=== PATIENT | male | born 1980 | race African-American/Black ===

== ENCOUNTER 2023-04-25 08:11 | Emergency (ER) | payer OTHER, MEDICAID ==
[~2023-04-25] VITALS: Ht 167.6 cm; Wt 86.2 kg
[2023-04-25] MEDS ORDERED: VIBRA-TAB100 MG PO (09:14)
== END 2023-04-25 09:30 | disposition home or self-care (01) ==
LOC: ED 08:11
DX: H60.12 Cellulitis of left external ear (principal)